=== PATIENT | male | born 1990 | race African-American/Black ===

== ENCOUNTER 2021-07-04 23:27 | Emergency (ER) | payer SELFPAY ==
[2021-07-04] MEDS ORDERED: Sodium Bicarb 50 MEQ/50 ML Abboject 8.4% SYRINGE ONE (23:42)
[2021-07-04] MEDS ORDERED: Calcium Chloride 1 GM/10 ML Abboject SYRINGE ONE (23:42)
[2021-07-04] MEDS ORDERED: EPINEPHrine 1 MG/10 ML Abboject SYRINGE ONE (23:42)
== END 2021-07-04 23:56 | disposition expired ==
LOC: ERS 23:27
DX: I46.9 Cardiac arrest, cause unspecified (principal); S00.12XA Contusion of left eyelid and periocular area, initial encounter; V89.2XXA Person injured in unspecified motor-vehicle accident, traffic, initial encounter
CPT/HCPCS: 32551; 36430; 86900; 86901; 92950; 96374; 96375; G0390; J0171; P9016